=== PATIENT | female | born 1995 | race Caucasian/White ===

== ENCOUNTER 2019-03-09 18:12 | Emergency (ER) | payer OTHER ==
[2019-03-09 19:58] LABS: Urine Blood TRACE (NEG); Urine Glucose NEGATIVE (NEG); Urine Protein NEGATIVE (NEG); Urine Specific Gravity 1.015 (1.005-1.030); Urine pH 5.5 (5.0-7.0)
--- NOTE | 2019-03-09 20:59 | RAD REPORT ---
EXAM DESCRIPTION: RAD - Ankle Right 3 View - 03/09/2019 8:00 pm CLINICAL HISTORY: Fall, twisting injury, ankle pain COMPARISON: None. FINDINGS: No fracture, dislocation or periosteal reaction. No joint effusion seen. No joint space na rrowing. Lateral soft tissue swelling is present. IMPRESSION: Soft tissue swelling with no right ankle fracture.
--- NOTE | 2019-03-09 21:02 | EDPHYS ---
Physician Documentation [facility] Name: Marsha Gomez Age: 23 yrs Sex: Female : 1995 Arrival Date: 03/09/2019 Time: 18:18 Bed 9 Private MD: ED Physician Herbie Goldman HPI: 03/09 19:55 This 23 yrs old Female presents to ER via Wheelchair with complaints of Ankle jmm Injury. 19:55 The patient presents with an injury, pain. Onset: The symptoms/episode began/occurred jmm acutely. Associated signs and symptoms: Pertinent positives: swelling. Modifying factors: The symptoms are alleviated by nothing, the symptoms are aggravated by nothing. This is a 23 year old female with no chronic medical conditions that presents to the ED with complaints of right ankle pain. Patient fell down a stair. Complains of pain to the right lateral ankle. . 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 - Social history:: Smoking status: Patient/guardian denies using tobacco. - Ebola Screening: : Patient denies travel to an Ebola-affected area in the 21 days before illness onset. ROS: 19:55 Constitutional: Negative for fever, chills, and weight loss, Cardiovascular: Negative jmm for chest pain, palpitations, and edema, Respiratory: Negative for shortness of breath, cough, wheezing, and pleuritic chest pain. 19:55 MS/extremity: Positive for injury or acute deformity, pain. 19:55 All other systems are negative. Exam: 19:55 Constitutional: This is a well developed, well nourished patient who is awake, alert, jmm and in no acute distress. Head/Face: atraumatic. Eyes: EOMI, no conjunctival erythema appreciated ENT: Moist Mucus Membranes Neck: Trachea midline, Supple Chest/axilla: Normal chest wall appearance and motion. Cardiovascular: Regular rate and rhythm. No edema appreciated Respiratory: Normal respirations, no respiratory distress appreciated Abdomen/GI: Non distended, soft Back: Normal ROM Skin: General appearance color normal 19:55 Musculoskeletal/extremity: right lateral anterior ankle ttp, no pain at the metatarsals, full dorsalis pulse, compartments are soft, NVI. 19:55 Skin: Appearance: Color: normal in color. 19:55 Neuro: Orientation: is normal, Mentation: is normal, Memory: is normal. 19:55 Psych: Behavior/mood is pleasant, cooperative. Vital Signs: 19:08 BP 151 / 85; Pulse 95; Resp 18; Temp 98.4; Pulse Ox 100% on R/A; Weight 102.06 kg (R); aj1 Height 5 ft. 2 in. (157.48 cm) (R); Pain 7/10; 20:32 BP 142 / 77; Pulse 87; Resp 17; Pulse Ox 99% on R/A; sg 19:08 Body Mass Index 41.15 (102.06 kg, 157.48 cm) [facility] MDM: 19:[address] [facility] 21:00 Data reviewed: vital signs, nurses notes. Counseling: I had a detailed discussion with pancho the patient and/or guardian regarding: the historical points, exam findings, and any diagnostic results supporting the discharge/admit diagnosis, radiology results, the need for outpatient follow up, to return to the emergency department if symptoms worsen or persist or if there are any questions or concerns that arise at home. 03/09 19:53 Order name: Urine Dipstick--Ancillary (enter results); Complete Time: 20:00 [facility] 03/09 19:53 Order name: Urine --Ancillary (enter results); Complete Time: 20:00 [facility] 03/09 19:11 Order name: Ankle Right 3 View XRAY; Complete Time: 21:02 [facility] 03/09 19:23 Order name: Ice pack; Complete Time: 19:23 sg 03/09 20:36 Order name: Bk wrap-joint; Complete Time: 20:36 sg Administered Medications: No medications were administered Disposition: 03/09/19 21:01 Discharged to Home. Impression: Sprain of ankle. - Condition is Stable. - Discharge Instructions: Ankle Sprain. - Work release form, Medication Reconciliation Form, Thank You Letter, Antibiotic Education, Prescription Opioid Use form. - Follow up: Tavon Thomas MD; When: 2 - 3 days; Reason: Recheck today's complaints, Continuance of care, Re-evaluation by your physician. Addendum: 03/11/2019 09:59 Co-signature as Attending Physician, Herbie Goldman MD I agree with the assessment and c zayas plan of care. Signatures: Dispatcher [employer] EDMS Michelle Potter RN RN aj1 Giorgio Cox RN RN sg Anderson, Corey, MD MD cha Mickail, Joel, PA PA jmm Corrections: (The following items were deleted from the chart) 03/09 21:15 21:01 03/09/2019 21:01 Discharged to Home. Impression: Sprain of ankle. Condition is sg Stable. Forms are Medication Reconciliation Form, Thank You Letter, Antibiotic Education, Prescription Opioid Use. Follow up: Dr. Tavon Thomas; When: 2 - 3 days; Reason: Recheck today's complaints, Continuance of care, Re-evaluation by your physician. pancho
--- NOTE | 2019-03-09 21:02 | ER ---
Nurse's Notes [facility] Name: Marsha Gomez Age: 23 yrs Sex: Female : 1995 Arrival Date: 03/09/2019 Time: 18:18 Bed 9 Private MD: Diagnosis: Sprain of ankle Presentation: 03/09 19:05 Presenting complaint: Patient states: "I fell at work on the stairs, I was in a lot of aj1 pain and then my leg started swelling" Patient reports pain to right ankle. Transition of care: patient was not received from another setting of care. Onset of symptoms was March 09, 2019. Risk Assessment: Do you want to hurt yourself or someone else? Patient reports no desire to harm self or others. Initial Sepsis Screen: Does the patient meet any 2 criteria? No. Patient's initial sepsis screen is negative. Does the patient have a suspected source of infection? No. Patient's initial sepsis screen is negative. Care prior to arrival: None. 19:05 Method Of Arrival: Wheelchair aj1 19:05 Acuity: SHALOM 4 aj1 Triage Assessment: 19:08 General: Appears in no apparent distress. uncomfortable, Behavior is calm, cooperative, aj1 appropriate for age. Pain: Complains of pain in right ankle. Neuro: Level of Consciousness is awake, alert, obeys commands. Cardiovascular: Patient's skin is warm and dry. Respiratory: Airway is patent Respiratory effort is even, unlabored, Respiratory pattern is regular, symmetrical. Musculoskeletal: Range of motion: limited in right ankle. 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 - Social history:: Smoking status: Patient/guardian denies using tobacco. - Ebola Screening: : Patient denies travel to an Ebola-affected area in the 21 days before illness onset. Screenin:19 Abuse screen: Denies threats or abuse. Denies injuries from another. Nutritional hb screening: No deficits noted. Tuberculosis screening: No symptoms or risk factors identified. Fall Risk None identified. Assessment: 19:00 General: Appears in no apparent distress. well groomed, well developed, well nourished, sg Behavior is calm, cooperative, appropriate for age. Pain: Complains of pain in right ankle Quality of pain is described as aching, throbbing. Neuro: Level of Consciousness is awake, alert, obeys commands. Cardiovascular: Patient's skin is warm and dry. Chest pain is denied. Respiratory: Airway is patent Respiratory effort is even, unlabored, Respiratory pattern is regular, symmetrical. GI: No signs and/or symptoms were reported involving the gastrointestinal system. : No signs and/or symptoms were reported regarding the genitourinary system. EENT: No signs and/or symptoms were reported regarding the EENT system. Derm: Skin is pink, warm \\T\\ dry. Musculoskeletal: Circulation, motion, and sensation intact. Range of motion: intact in all extremities, Swelling present in right foot. Vital Signs: 19:08 BP 151 / 85; Pulse 95; Resp 18; Temp 98.4; Pulse Ox 100% on R/A; Weight 102.06 kg (R); aj1 Height 5 ft. 2 in. (157.48 cm) (R); Pain 7/10; 20:32 BP 142 / 77; Pulse 87; Resp 17; Pulse Ox 99% on R/A; sg 19:08 Body Mass Index 41.15 (102.06 kg, 157.48 cm) aj1 ED Course: 18:18 Patient arrived in ED. mr 19:07 Triage completed. aj1 19:08 Arm band placed on. aj1 19:10 No provider procedures requiring assistance completed. sg 19:15 Christopher Christiansen PA is PHCP. [facility] 19:15 Herbie Goldman MD is Attending Physician. jmm 19:19 Giorgio Cox, RN is Primary Nurse. sg 19:19 Patient has correct armband on for positive identification. Bed in low position. Call light in reach. Side rails up X 1. 19:20 Awaiting for x-ray. sg 19:23 icepack applied to injury. sg 19:50 Urine collected: clean catch specimen, clear. [facility] 20:02 Ankle Right 3 View XRAY In Process Unspecified. EDMS 20:03 Awaiting radiology results. sg 20:36 Bk wrap to right ankle. 20:37 Awaiting disposition. sg 21:01 Tavon Thomas MD is Referral Physician. [facility] 21:10 Patient did not have IV access during this emergency room visit. sg Administered Medications: No medications were administered Outcome: 21:01 Discharge ordered by . [facility] 21:10 Discharged to home via wheelchair, with crutches, with family. sg 21:10 Condition: good 21:10 Discharge instructions given to patient, family, Instructed on discharge instructions, follow up and referral plans. medication usage, safety practices, crutch walking, Demonstrated understanding of instructions, follow-up care, crutch walking. 21:15 Patient left the ED. sg Signatures: Dispatcher [employer] EDMS Michelle Potter RN RN aj1 Gay, Steven, RN RN sg Mickail, Joel, PA PA jmm Rivera, Mary mr Baxter, Heather, RN RN hb Martinez, Maria [facility] Corrections: (The following items were deleted from the chart) 20:37 18:32 BP 142 / 77; Pulse 87bpm; Resp 17bpm; Pulse Ox 99% RA; sg 21:16 09:10 Discharged to home via wheelchair, with crutches, with family, sg 21:16 09:10 Condition: good [facility] 21:16 09:10 Discharge instructions given to patient, family, Instructed on discharge sg instructions, follow up and referral plans. medication usage, safety practices, crutch walking, Demonstrated understanding of instructions, follow-up care, crutch walking, sg
[2019-03-09 23:05] VITALS: TEMP 98.4
[2019-03-09 23:09] VITALS: BP 142/77; O2SAT 99
== END 2019-03-09 21:15 | disposition home or self-care (01) ==
LOC: ER 18:12
DX: S93.401A Sprain of unspecified ligament of right ankle, initial encounter (principal); W10.9XXA Fall (on) (from) unspecified stairs and steps, initial encounter; Y93.9 Activity, unspecified; Y92.9 Unspecified place or not applicable
CPT/HCPCS: 81003; 81025; 99283

== ENCOUNTER 2022-10-23 14:58 | Emergency (ER) | payer OTHER ==
--- OUTSIDE RECORDS SUMMARY | 2022-10-23 15:01 | XMS REPORT | Continuity of Care Document ---
:1995 Author Organization [facility] t Address [address] [place] [address] Care Team Providers Name Role Phone TRAVIS LANGLEY Attending Clinician Unavailable Problems This patient has no known problems. Allergies, Adverse Reactions, Alerts This patient has no known allergies or adverse reactions. Medications This patient has no known medications. Procedures This patient has no known procedures. Encounters Start End Encounter Admission Attending Care Care Encounter Source Date/Time Date/Time Type Type Clinicians Facility Department ID 2020-06-24 2020-06-24 Outpatient JONES LANGLEY [facility] [id number] 12:17:00 15:56:00 TRAVIS Results This patient has no known results.
[2022-10-23 15:47] LABS: Specific Gravity > 1.030 (1.005-1.030); Urine Bacteria <20 /HPF (<20); Urine Bilirubin NEGATIVE (Negative); Urine Blood 1+ (Negative); Urine Clarity Extremely Turbid (Clear); Urine Color Yellow (Yellow); Urine Crystals Unidentified Few /HPF (None Seen); Urine Glucose NEGATIVE (Negative); Urine Mucus 1+ /HPF (None Seen); Urine Protein 2+ (Negative); Urine Urobilinogen 1+ (Normal); Urine pH 5.5 (5.0-7.0)
[2022-10-23] MEDS ORDERED: NA CHLORIDE 0.9% 1,000 ML ONE (16:28)
[2022-10-23 16:36] LABS: Absolute Lymphocytes (CBC) 1.3 K/uL (0.7-4.9); Hematocrit 42.1 % (36.0-45.0); Lymphocytes % 12.9 % (15.3-44.8); MCV 82.5 fL (80-100); Platelets 333 thou/uL (152-406)
[2022-10-23 17:00] LABS: Albumin 4.6 g/dL (3.4-5.0); Bilirubin Total 0.7 mg/dL (0.2-1.0); Potassium 3.5 mEq/L (3.5-5.1); Protein, Total 8.1 g/dL (6.4-8.2)
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
[2022-10-23 20:35] VITALS: O2SAT 100
[2022-10-23 20:38] VITALS: BP 132/88; TEMP 98.6
== END 2022-10-23 19:51 | disposition home or self-care (01) ==
LOC: ER 14:58
DX: R10.32 Left lower quadrant pain (principal); R10.31 Right lower quadrant pain; V49.59XA Passenger injured in collision with other motor vehicles in traffic accident, initial encounter; F32.A Depression, unspecified
CPT/HCPCS: 96361; 85025; 81001; 36415; 80053; 96360; 99284; J7030